=== PATIENT | female | born 1995 | race Caucasian/White ===

== ENCOUNTER 2018-10-10 19:14 | Emergency (ER) | payer OTHER, SELFPAY ==
[2018-10-10 19:15] VITALS: BP 123/93; PULSE 75; RESP 19; TEMP 37.1; O2SAT 98; BMI 20.1
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
[2018-10-10 21:20] VITALS: BP 128/78; PULSE 81; RESP 16; O2SAT 100
== END 2018-10-10 21:21 | disposition home or self-care (01) ==
LOC: ED 20:16
PROVIDERS: Emergency Provider Emergency Medicine
DX: S29.012A Strain of muscle and tendon of back wall of thorax, initial encounter (principal); S39.012A Strain of muscle, fascia and tendon of lower back, initial encounter; V49.40XA Driver injured in collision with unspecified motor vehicles in traffic accident, initial encounter; Y93.9 Activity, unspecified; Y92.9 Unspecified place or not applicable; Y99.9 Unspecified external cause status
CPT/HCPCS: 72070; 72100; 99284

== ENCOUNTER 2019-02-12 09:04 | Emergency (ER) | payer OTHER, SELFPAY ==
[2019-02-12 09:05] VITALS: BP 128/92; PULSE 79; RESP 22; TEMP 35.7; O2SAT 100; BMI 21.9
--- NOTE | 2019-02-12 09:28 | ED.DCSUM_ITS ---
- ER Visit Summary Date of Service: 02/12/19 Chief Complaint: Facial tingling History of Present Illness: The patient is a 23 F who states the before arrival emergency department she was at work. Indicate tingling in her fingers and her face. [place] a tightness in her chest and throat getting tighter. She states that she has had this before and was related to anxiety. She states it has been a long time since she had one. She is being treated for PTSD through [facility]. She is on Zoloft and Neurontin. Patient states that a week ago she had some blood in her stool. Retaining water. She states that she has had some anxiety about health care. She does not have a family physician. Physical Examination: Afebrile vital signs are stable Gen: Well-nourished well-developed Head: Normocephalic atraumatic Eyes: Perrl EOMI ENT: TMs clear no rhinorrhea moist mucous membranes Neck: Supple no lymphadenopathy no JVD nontender CVS: Regular rate rhythm no murmurs normal S1-S2 Respiratory: No distress clear to auscultation bilaterally chest nontender patient is tachypneic Abdomen: Soft nontender nondistended normal bowel sounds no masses Back: Nontender Extremity: Nontender no edema Skin: Normal color no rash Neuro: alert orientated ?3 CN II-XII intact normal strength sensation reflexes gait cerebellar Psych: Patient is anxious. No suicidal or homicidal ideation. Emergency Department Course and Treatment: Patient was given a dose of Ativan. He is feeling significantly better. She does note that she is tired. She has an appointment tomorrow at [facility]. She will inform them of today's visit. Patient is fully insured but has no primary care physician. I will refer her to primary care for her primary care needs. Impression: 1. Panic attack This note was generated with [employer] dictation software. It may contain incorrect words, spelling, and punctuation that were not noted in review of the chart prior to signing ED Disposition - Plan for ED Patient: Disposition: Home or Assisted Living Instructions: ED Panic Attack Referrals: Socorro Almonte MD [STAFF PHYSICIAN] - (call to establish with a primary care physician)
[2019-02-12] MEDS: LORazepam 0.5 MG Tablet PO (10:01)
[2019-02-12 10:43] VITALS: BP 129/61; PULSE 78; RESP 15; O2SAT 100
== END 2019-02-12 10:44 | disposition home or self-care (01) ==
PROVIDERS: Emergency Provider Emergency Medicine
DX: F41.0 Panic disorder [episodic paroxysmal anxiety] (principal); F43.10 Post-traumatic stress disorder, unspecified; R20.2 Paresthesia of skin; R06.82 Tachypnea, not elsewhere classified; Z72.0 Tobacco use; Z79.899 Other long term (current) drug therapy
CPT/HCPCS: 99283

== ENCOUNTER 2019-07-24 14:22 | Emergency (ER) | payer OTHER, SELFPAY ==
[2019-07-24 14:23] VITALS: BP 140/106; PULSE 110; RESP 27; TEMP 37; O2SAT 98; BMI 20.1
--- NOTE | 2019-07-24 15:06 | ED.DCSUM_ITS ---
History of Present Illness Chief Complaint: Suicidal Informant: Patient Onset: Days Context: Sudden Onset Timing: Continuous Current Severity: Moderate Maximum Severity: Severe Associated Symptoms: Depressed, Change in Eating, Change in sleeping, Decreased Interest, Suicidal Thoughts. Negative for: Guilt, Hopelessness, Easily distracted, Grandiosity, Flight of Ideas, Increased activity, Pressured Speech, Angry, Hostile, Threatening, Confusion, Paranoia, Visual Hallucinations, Auditory Hallucinations Specific plan (suicidal thought): Crash her car Narrative: Should not is a 24-year-old female who presents with depression and suicidal thoughts. She has thoughts of crashing her car. She states she wishes she wo uld go to sleep and never wake up. She is on multiple antidepressants. She is seen at [facility] in [place]. 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 She has not used for approximately 1 to 2 years. She denies fever, chills night sweats. Denies headache, ocular, auditory or visual symptoms. She denies trouble with speech or swallowing. She denies cardiac respiratory symptoms. She denies GI symptoms. She denies gynecologic or urologic symptoms. She denies paresthesia, anesthesia or motor weakness. She denies problems with balance. Patient states she drove herself to the emergency department. Prior similar symptoms: Yes Recent Illness/Hospitalization: No - Past Medical History (1) History of depression Status: Acute (2) History of drug use Status: Acute Past Medical History - Allergies and Home Meds Allergies/Adverse Reactions: Allergies No Known Allergies Allergy (Verified 07/24/19 14:27) Primary Care Physician: Care Physician,No Primary [Primary Care Provider] - Prior records reviewed: Yes Surgical History: no surgical history Lives: With Family Smoking Status: Current every day smoker Alcohol: None Drugs: None, - - Drug addict Review of Systems General: Denies: Chills, Fever, Sweats Eyes: Denies: Visual changes - bilaterally, Blurred Vision - bilaterally, Diplopia ENT: Denies: Bilateral ear pain, Rhinorrhea, Sore throat Cardiovascular: Denies: Chest pain, Palpitations Respiratory: Denies: Dyspnea, Cough, Dyspnea on exertion Gastrointestinal: Denies: Abdominal pain, Nausea, Vomiting, Diarrhea, Melena, Hematochezia Genitourinary: Denies: Dysuria, Hematuria, Frequency Musculoskeletal: Denies: Back pain, Extremity Pain Skin: Denies: Rash, Wounds Neurological: Denies: Headache, Weakness, Numbness Psych: Reports: Depression, Anxiety, Suicidal thoughts, Suicidal ideations Physical Exam Vital Signs/Narrative: Vital Signs Temp Pulse Resp BP Pulse Ox 07/24/19 14:23 98.6 F 110 H 27 H 140/106 H 98 Inital Vital Signs reviewed: Yes Psych: Depressed, Labile, Flat Affect, Poverty of Speech, Suicidal thoughts, Limited Insight, Limited Judgement. Negative for: Normal Speech Pattern, Logical sequential goal directed thoughts, No suicidal or homicidal ideation, Normal Stable Appropriate Affect, Good Insight, Good Judgement, Irritable, Euphoric, Flight of Ideas, Incoherent thoughts, Homicidal thoughts, Hallucinations, Delusions, Paranoid Ideation Diagnostic/Tx/Re-eval Laboratory Results 07/24/19 07/24/19 07/24/19 15:20 15:20 15:20 WBC 6.4 RBC 4.36 Hgb 12.9 Hct 39.2 MCV 89.9 MCH 29.6 MCHC 32.9 RDW Std Deviation 43.8 RDW Coeff of Nirali 13.2 Plt Count 344 MPV 9.7 Immature Gran % (Auto) 0.300 Neut % (Auto) 68.8 Lymph % (Auto) 22.5 [place] % (Auto) 5.0 Eos % (Auto) 2.8 Baso % (Auto) 0.6 Absolute Neuts (auto) 4.4 Absolute Lymphs (auto) 1.43 Nucleated RBC % 0 Sodium 139 Potassium 3.8 Chloride 111 H Carbon Dioxide 23.0 Anion Gap 5 BUN 13 Creatinine 0.53 L Estim Creat Clear Calc 131.14 Est GFR (MDRD) Af Amer 187 Est GFR (MDRD) Non-Af 154 BUN/Creatinine Ratio 24.7 H Glucose 96 Calcium 9.0 Serum , Qual Urine Opiates Screen Urine Methadone Screen Ur Barbiturates Screen Ur Phencyclidine Scrn Ur Amphetamines Screen U Methamphetamin-MDMA U Benzodiazepines Scrn Urine Cocaine Screen U Cannabinoids Screen Ur Drug Screen Comment Ethyl Alcohol < 3.0 07/24/19 07/24/19 15:20 Unknown WBC RBC Hgb Hct MCV MCH MCHC RDW Std Deviation RDW Coeff of Nirali Plt Count MPV Immature Gran % (Auto) Neut % (Auto) Lymph % (Auto) [place] % (Auto) Eos % (Auto) Baso % (Auto) Absolute Neuts (auto) Absolute Lymphs (auto) Nucleated RBC % Sodium Potassium Chloride Carbon Dioxide Anion Gap BUN Creatinine Estim Creat Clear Calc Est GFR (MDRD) Af Amer Est GFR (MDRD) Non-Af BUN/Creatinine Ratio Glucose Calcium Serum , Qual NEGATIVE Urine Opiates Screen NEGATIVE Urine Methadone Screen NEGATIVE Ur Barbiturates Screen NEGATIVE Ur Phencyclidine Scrn NEGATIVE Ur Amphetamines Screen NEGATIVE U Methamphetamin-MDMA NEGATIVE U Benzodiazepines Scrn NEGATIVE Urine Cocaine Screen NEGATIVE U Cannabinoids Screen POSITIVE H Ur Drug Screen Comment Ethyl Alcohol Laboratory results are unremarkable. Tox screen is positive for cannabis. This would not explain patient's complaints. Screening labs were obtained to facilitate placement at psychiatric facility. No acute metabolic, infectious or medical issues that would prevent patient receiving care at a psychiatric facility. She was seen by Kaci, case management. Plan is intense outpatient therapy. She has an appointment to be seen tomorrow. She was contracted for safety. ED Disposition - Plan for ED Patient: Disposition: Home or Assisted Living Diagnosis: Depression, Suicidal thoughts Instructions: Depression Referrals: Care Physician,No Primary [Primary Care Provider] -
[2019-07-24 15:32] LABS: Absolute Lymphocyte Count 1.43 X10^3/uL (0.83-4.51); Absolute Neutrophil Count 4.4 X10^3/uL (2.0-7.7); Basophil# 0.04 X10^3/uL; Basophil% 0.6 % (0-1); Eosinophil# 0.18 X10^3/uL; Eosinophils% 2.8 % (0-5); Hematocrit 39.2 % (37-47); Hemoglobin 12.9 g/dL (12.0-15.0); Lymphocyte # 1.43 X10^3/ul (4.0); Lymphocyte % 22.5 % (19-41); Mean Corp Hgb Conc 32.9 g/dL (32-36); Mean Corpuscular Hgb 29.6 pg (27.0-32.0); Mean Corpuscular Volume 89.9 fL (81-99); Mean Platelet Vol. 9.7 fl (6.2-12.0); Monocyte# 0.32 X10^3/uL; NRBC Flagged by Analyzer 0 % (0-5); Neutrophil # 4.37 X10^3/uL (2.7-7.7); Neutrophil % 68.8 % (47-70); Platelet Count 344 K/mm3 (150-450); RBC Distribution Width CV 13.2 % (11.6-14.6); RBC Distribution Width SD 43.8 fl (35.1-43.9); Red Blood Count 4.36 M/mm3 (4.2-5.4); White Blood Count 6.4 K/mm3 (4.4-11.0)
[2019-07-24 15:49] LABS: Anion Gap 5 (5-15); BUN 13 mg/dL (7-18); BUN/Creat Ratio 24.7 RATIO (10-20); Chloride 111 mmol/L (98-107); Creatinine, Serum 0.53 mg/dL (0.55-1.02); EST Glomerular Filtration Rate 154 mL/min (>60); Est Glom Filt Rate - Afr Amer 187 mL/min (>60); Estimated Creatinine Clearance 131.14 ml/min; Glucose 96 mg/dL (74-106); Potassium 3.8 mmol/L (3.5-5.1); Sodium Level 139 mmol/L (136-145)
[2019-07-24 16:00] VITALS: RESP 16
[2019-07-24 16:09] LABS: Amphetamine Urine VISTA NEGATIVE (<1000 ng/mL); Barbiturate Urine VISTA NEGATIVE (< 200 ng/mL); Benzodiazepine Urine VISTA NEGATIVE (< 200 ng/mL); Cocaine Urine VISTA NEGATIVE (< 300 ng/mL); Ecstacy Urine VISTA NEGATIVE (< 500 ng/mL); Methadone Urine VISTA NEGATIVE (< 300 ng/mL); PCP Urine VISTA NEGATIVE (< 25 ng/mL); THC Urine VISTA POSITIVE (< 50 ng/mL); Vista UDS pH Range 7
[2019-07-24 16:11] LABS: Internal QC Validated? YES +Cl - CLEAR BKGD
[2019-07-24 16:12] LABS: Pregnancy, Serum, hCG Quali. NEGATIVE Negative
[2019-07-24 16:14] LABS: Alcohol, Blood (Medical)-Serum < 3.0 mg/dL
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
[2019-07-24 17:00] VITALS: RESP 16
--- NOTE | 2019-08-01 12:40 | CM.ED ---
SOCIAL WORK ATTEMPTED TO COMPLETE FOLLOW UP WITH PATIENT ON 07/27/19 AND THIS DAY. MESSAGES LEFT. PATIENT DID NOT ATTEND INTAKE APPOINTMENT AT THE [facility]. Kia ROD MSW, HUMIDIFIER MAINTENANCE WORKER.
== END 2019-07-24 18:21 | disposition home or self-care (01) ==
PROVIDERS: Emergency Provider Emergency Medicine
DX: R45.851 Suicidal ideations (principal); F32.9 Major depressive disorder, single episode, unspecified; F17.200 Nicotine dependence, unspecified, uncomplicated
CPT/HCPCS: 80048; 80307; 80320; 84703; 85025; 99283; G0480

== ENCOUNTER 2020-04-19 15:17 | Emergency (ER) | payer OTHER, SELFPAY ==
[2020-04-19 15:18] VITALS: BP 129/65; PULSE 85; RESP 18; TEMP 37; O2SAT 97; BMI 23.2
--- NOTE | 2020-04-19 15:56 | ED.DCSUM_ITS ---
History of Present Illness Chief Complaint: GI Bleed Informant: Patient Narrative: Patient is a 25-year-old previously female who presents to the emergency department for diarrhea and bright red blood per rectum. Over the past 3 days she has had 2-4 episodes of nonbloody diarrhea. Today she said she had a bowel movement which was all bright red blood. She denies rectal pain. She has had some intermittent lower abdominal pain. She currently denies having pain. She states that it is normally dull but sometimes gets sharp. No known aggravating factors. Whenever the pain is there whenever she curls up in a ball and this sometimes helps. She has never had any of these issues before in the past. No associated nausea/vomiting. She denies any urinary symptoms. She denies any chance of being . She does not know anybody with similar symptoms. No recent travel or antibiotic use. She has not had any fevers or chills. No chest pain, shortness of breath or lightheadedness. She denies any issues with anemia before in the past. She does smoke cigarettes and marijuana but denies any other illicit drug use. Denies alcohol use. Past Medical History - Allergies and Home Meds Allergies/Adverse Reactions: Allergies No Known Allergies Allergy (Verified 07/24/19 14:27) Primary Care Physician: Care Physician,No Primary [Primary Care Provider] - Prior records reviewed: Yes Past Medical History: - - PTSD Surgical History: no surgical history Smoking Status: Current every day smoker Alcohol: None Drugs: Marijuana Review of Systems All systems negative except as indicated General: Denies: Chills, Fever, Sweats Eyes: Denies: Visual changes - bilaterally, Diplopia ENT: Denies: Rhinorrhea, Sore throat Cardiovascular: Denies: Chest pain, Palpitations Respiratory: Denies: Dyspnea, Cough, Dyspnea on exertion Gastrointestinal: Reports: Abdominal pain - None currently but is intermittent, Diarrhea. Denies: Nausea, Vomiting, Melena Genitourinary: Denies: Dysuria, Hematuria, Frequency Musculoskeletal: Denies: Back pain, Extremity Pain Skin: Denies: Rash, Wounds Neurological: Denies: Headache, Weakness, Numbness Hematologic: Denies: Easy bruising, Easy bleeding Physical Exam Vital Signs/Narrative: Vital Signs Temp Pulse Resp BP Pulse Ox 04/19/20 15:18 98.6 F 85 18 129/65 H 97 Inital Vital Signs reviewed: Yes General: Well nourished, Well developed, No Acute Distress Head: Normocephalic, Atraumatic Eyes: Perrl, EOMI ENT: Moist mucous membranes, No rhinorrhea Neck: Supple, Nontender Cardiovascular: Regular rate, Regular rhythm, No murmurs Respiratory: No distress, CTA bilaterally, Chest nontender Abdomen: Soft, Nontender, Nondistended, Normal bowel sounds Rectal: - - Rectal exam performed by Dr. Lock at patient's request for female doctor. She did not appreciate any lesions, fissures or hemorrhoids. No bright red blood/melena was appreciable Back: Nontender, Normal Inspection Extremities: Nontender, No edema Skin: Normal color, No rash Neurological: Alert, Oriented x3, Cranial nerves II-XII grossly intact, Normal Strength, Normal Sensation Psychological: Normal affect, Normal Mood Diagnostic/Tx/Re-eval - Medical Decision Making Patient presents to the emergency department for an episode of bright red blood per rectum. She has been having diarrhea over the past 3 days. Upon arrival to the emerge department vital signs within normal limits. She is not tachycardic. Not hypotensive. No fever. She does not appear in any distress on physical exam. Basic lab work being obtained. Did not reveal any significant acute abnormality. Specifically no anemia. BUN within normal limits. No significant abdominal pain to warrant a CT scan at this time. Urinalysis no evidence of infection. test was negative. Patient will be discharged home in stable condition. She is to drink plenty of water to remain hydrated. Given diet for diarrhea. Given her a PCP to follow- up with from the no doc list. If she continues to have this rectal bleeding and develops any symptoms she is to return to the emergency department immediately. Otherwise she needs follow-up with the PCP. She understands and is agreeable this plan. Will discharge home in stable condition. ED Disposition - Plan for ED Patient: Disposition: Home or Assisted Living Diagnosis: Diarrhea, Rectal bleeding Instructions: ED Hematochezia Stable, ED Diet for Vomiting or Diarrhea Adult Referrals: Care Physician,No Primary [Primary Care Provider] - 2 Days João Pedroza MD [STAFF PHYSICIAN] - 2 Days
[2020-04-19 16:52] LABS: Absolute Lymphocyte Count 1.86 X10^3/uL (0.83-4.51); Absolute Neutrophil Count 3.7 X10^3/uL (2.0-7.7); Basophil# 0.03 X10^3/uL; Basophil% 0.5 % (0-1); Eosinophil# 0.18 X10^3/uL; Eosinophils% 2.9 % (0-5); Hematocrit 38.3 % (37-47); Hemoglobin 12.4 g/dL (12.0-15.0); Lymphocyte # 1.86 X10^3/ul (4.0); Lymphocyte % 29.7 % (19-41); Mean Corp Hgb Conc 32.4 g/dL (32-36); Mean Corpuscular Hgb 29.7 pg (27.0-32.0); Mean Corpuscular Volume 91.8 fL (81-99); Mean Platelet Vol. 9.9 fl (6.2-12.0); Monocyte# 0.46 X10^3/uL; Monocyte% 7.3 % (0-10); NRBC Flagged by Analyzer 0 % (0-5); Neutrophil # 3.73 X10^3/uL (2.7-7.7); Neutrophil % 59.4 % (47-70); Platelet Count 335 K/mm3 (150-450); RBC Distribution Width CV 13.3 % (11.6-14.6); RBC Distribution Width SD 44.4 fl (35.1-43.9); Red Blood Count 4.17 M/mm3 (4.2-5.4); White Blood Count 6.3 K/mm3 (4.4-11.0)
[2020-04-19 17:09] LABS: Internal QC Validated? YES +Cl - CLEAR BKGD; Pregnancy, Serum, hCG Quali. NEGATIVE Negative
[2020-04-19 17:16] LABS: ALB/GLOB Ratio 1.5 RATIO (0.9-2.4); AST(SGOT) 16 U/L (15-37); Alanine Aminotransfer ALT/SGPT 21 U/L (13-56); Albumin, Serum 4.4 g/dL (3.2-5.0); Alkaline Phosphatase 79 U/L (45-117); Anion Gap 2 (5-15); BUN 11 mg/dL (7-18); BUN/Creat Ratio 19.2 RATIO (10-20); Calcium,Total 8.8 mg/dL (8.5-10.1); Chloride 109 mmol/L (98-107); Creatinine, Serum 0.57 mg/dL (0.55-1.02); EST Glomerular Filtration Rate 139 mL/min (>60); Est Glom Filt Rate - Afr Amer 168 mL/min (>60); Glucose 94 mg/dL (74-106); Protein, Total 7.4 g/dL (6.4-8.2); Sodium Level 140 mmol/L (136-145)
[2020-04-19 17:30] LABS: Bacteria 0 SEEN /hpf (None Seen); Mucous, Urine 0 SEEN /hpf (<or=2+); Red Blood Cells-Urine 0 SEEN /hpf (0-5); White Blood Cells 0 SEEN /hpf (0-5)
[2020-04-19 17:31] LABS: Color, Urine Yellow (Yellow); Glucose, Dipstick Normal (Normal); Ketone-Dipstick Negative (Negative); Leukocyte Esterase-Dipstick Negative /ul (Negative); Nitrite-Dipstick Negative (Negative); Occult Blood-Urine Negative /ul (Negative); Protein-Dipstick Negative (Negative); Specific Gravity, Urine 1.015 (1.002-1.030); Urine Bilirubin Dipstick Negative (Negative); Urine Clarity Sl. Cloudy (Clear); Urine Urobilinogen Normal (Normal)
[2020-04-19 17:39] LABS: Squamous Epithelial Cells - UA 0-5 SEEN /hpf (5-10)
[2020-04-19 18:02] VITALS: BP 137/81; PULSE 78; RESP 16; O2SAT 100
== END 2020-04-19 18:03 | disposition home or self-care (01) ==
PROVIDERS: Emergency Provider Emergency Medicine
DX: K62.5 Hemorrhage of anus and rectum (principal); R19.7 Diarrhea, unspecified; F17.210 Nicotine dependence, cigarettes, uncomplicated
CPT/HCPCS: 80053; 81001; 82274; 84703; 85025; 99283; A4216

== ENCOUNTER 2024-03-18 18:15 | Emergency (ER) | payer OTHER, SELFPAY ==
[2024-03-18 18:15] VITALS: BP 156/86; PULSE 87; RESP 16; TEMP 36.4; O2SAT 99; BMI 20.6
--- NOTE | 2024-03-18 18:50 | EDS_ITS ---
HPI History of Present Illness HPI Narrative: Healthy 28-year-old female. Her 2 dogs got in a fight and she went to break it up and got bit on her right long finger palmar aspect by the DIP. This occurred about an hour ago. Unsure of her last tetanus thinks it was about 12 years ago. That will be updated. She is right-hand dominant. Chief Complaint: Bite Informant: patient and parent Occured/Mechanism Mechanism/Context: Yes injury Onset/Context/Timing Onset: Today and Hours Context: Sudden Onset Timing: Continuous Quality of Pain: Sharp Current Severity: Mild Maximum Severity: Mild Associated Symptoms Associated Symptoms: Negative for Parasthesia, Weakness or Loss of Funtion Narrative Tetanus Immunization: >10 years Prior similar symptoms: No Recent Illness/Hospitalization: No ROS ROS ED ROS Narrative Denies recent illness. Review of Systems ROS Unobtainable: Denies due to encephalopathy Constitutional Constitutional ED: Denies chills or fever(s) Eyes Eyes: Denies blurry vision ENT ENT ED: Denies ear pain or rhinorrhea Cardiovascular Cardiovascular: Denies chest pain or palpitations Respiratory/Chest Respiratory/Chest: Denies cough or dyspnea Gastrointestinal Gastrointestinal: Denies abdominal pain Genitourinary Genitourinary ED: Denies dysuria or hematuria Musculoskeletal Musculoskeletal: Denies arthralgias or back pain Integumentary Denies abscess or Abrasions Psychiatric Psychiatric: Denies anxiety or depression Endocrine Endocrinology: Denies polydipsia Hematologic/Lymphatic Hematologic/Lymphatic: Denies easy bleeding, easy bruising or lymphadenopathy Allergic/Immunologic Allergic/Immunologic ED: Denies mouth swelling, tongue swelling or urticaria PFSH PFSH Medical History no medical history no medical history Home Medications ?Medication ?Instructions ?Recorded ?Last Taken ?Type clindamycin HCl 150 mg capsule 300 mg (2 x 150 mg) PO 4X/DAY ##80 07/23/16 Unknown Rx Allergy/AdvReac Type Severity Reaction Status Date / Time No Known Allergies Allergy Verified 03/18/24 18:17 Social History Smoking Status: Current some day smoker tobacco type: cigarettes EXAM Physical Exam Narrative Exam Narrative: Well-appearing 28-year-old female. Vital signs stable afebrile. H EENT exam unremarkable. Atraumatic. Neck nontender. Lungs clear. Heart regular rhythm. Abdomen soft. Moving all 4 extremities. Neurovascular intact. Right hand palmar aspect at the DIP skin crease she has a V-shaped dog laceration. Mild active bleeding. No pulsatile bleeding. Normal touch sensation. Full flexion extension. No signs of a flexor tendon injury. No signs of infection. Otherwise exam unremarkable. Const Vital Signs: 03/18/24 18:15 Temperature 97.6 F L Temperature Source Temporal Pulse Rate 87 Respiratory Rate 16 Blood Pressure 156/86 H Blood Pressure Mean 109 Pulse Ox 99 Oxygen Delivery Method Room Air Positive well nourished and well developed; Negative for obese, cachectic, contr actures or unkempt General Appearance ED: well developed and NAD; Negative for unkempt, cachectic or contractures Nutritional Appearance: Negative for cachectic or obese HEENT Reports moist mucous membranes normocephalic and atraumatic; Negative for trauma or tenderness Eyes PERRL and EOMs intact bilaterally General Eye ED: Negative for other Neck full ROM and no lymphadenopathy General: Negative for tenderness Resp normal respiratory effort and clear to auscultation bilaterally Effort and Inspection: Negative for other Auscultation: Negative for rales Cardio regular rate, regular rhythm, S1 normal heart sound, S2 normal heart sound and no murmurs Jugular Venous Distention: Negative for other Rate: Negative for bradycardia or tachycardic Rhythm: Negative for abnormal rhythm GI non-tender, non-distended and no masses Inspection: Negative for abdominal distention Palpation: soft; Negative for tender, guarding or rebound tenderness present Back/Spine no CVA tenderness Extremity full ROM; Negative for normal to inspection Extremity Narrative: Dog bite laceration right long finger, palmar aspect, at the DIP skin crease. About 2 to 3 cm in length. Mild active bleeding. Full flexion extension. Normal touch sensation. General Extremety ED: Yes tenderness; Negative for deformity or edema General Extremity: Negative for deformity or edema Neuro oriented x3, CN's II-XII intact bilaterally and no sensory deficits noted Sensorium / Orientation: alert, oriented to person, oriented to place and oriented to time; Negative for orientation impaired, lethargic or stuporous Motor Exam: strength 5/5 throughout Psych mental status grossly normal and thought process normal Appearance: Negative for unkempt Attitude: No agitated Mood & Affect: Negative for anxious Skin skin turgor normal General Skin Exam: Negative for other Lesions: no lesions Rashes: no rashes Trauma: laceration; Negative for abrasion MDM MDM MDM Narrative Medical decision making narrative: Healthy 28-year-old with a right long finger laceration dog bite. Will need to be repaired. Digital block. Explored. Washed and cleaned thoroughly. Irrigated. Suture repair. Tetanus to be updated. Discharged home. Suture removal in 10 days. Watch for any signs of infection. Suture repaired using 3 simple erupted 5-0 Ethilon sutures. Involve the skin and subcu tissue. No involvement of bone, joint or tendon. Cleaned thoroughly, irrigated with saline, washed and explored. Good hemostasis and wound closure is obtained. Tetanus updated. Dressed in discharge. Instructed on wound care. History & Record Review Discussion w/independent historian: Patient Procedures Lacerations Right long finger laceration repair:: Length: 0.5 in Depth: Sub Q Shape: Linear Prep: Shure-Clens Laceration repair: Digital block, Irrigated, Lidocaine, Nerve block, Skin sutures and Wound explored Number of Sutures/Cheryl: 3 Suture Information: Ethilon, Simple and 5-0 Comment: Right long finger dog bite laceration on the distal ulnar side just past the DIP. Skin and subcu tissue. No tendon, joint or bone. No foreign body. Digital block. Once proper anesthetic obtained. Washed with Shur-Clens washed and irrigated with saline and explored. Irrigated. Closed using 3 simple erupted 5-0 Ethilon sutures. Proper hemostasis wound closure obtained. Patient tolerated procedure well. A turnicot ring was used. Discharge Plan Triage Chief Complaint: Bite ED Provider: [facility] Dx/Rx/DC Orders Clinical Impression: Dog bite, Finger laceration Instructions: ED Dog Bite, ED Laceration, All Closures Prescriptions: No Action clindamycin HCl 150 MG capsule 300 mg PO 4X/DAY Qty: 80 0RF Primary Care Provider: Care Physician,No Primary Referrals: Care Physician,No Primary [Primary Care Provider] - Activity Restrictions/Additional Instructions: Tylenol and/or Motrin for pain. Clean daily with soap and water or peroxide and water. Apply antibiotic ointment. If you see any signs of infection much more swelling, redness, pus, streaks or fever return. At this time we do not need to start you on antibiotics. Stitches out in 10 days. You can take them out, we can take them out or your primary care physician's office can take them out. Keep dry and clean. If it gets wet clean it and dried off thoroughly. Print Language: Nepali Disposition Disposition: Home, Self Care
[2024-03-18] MEDS: Diphth,Pertuss(Acell),Tet Vac 0.5 ML Vial IM (19:00)
[2024-03-18] MEDS: Lidocaine 1% (20 ml mdv) 20 ML Vial 10 ML INFILT (19:00)
[2024-03-18 20:20] VITALS: BP 133/84; PULSE 82; RESP 16; TEMP 36.2; O2SAT 99
== END 2024-03-18 20:21 | disposition home or self-care (01) ==
PROVIDERS: Emergency Provider Emergency Medicine; Visit Provider Emergency Medicine
DX: S61.252A Open bite of right middle finger without damage to nail, initial encounter (principal); F17.210 Nicotine dependence, cigarettes, uncomplicated; Z23 Encounter for immunization; W54.0XXA Bitten by dog, initial encounter
CPT/HCPCS: 12001; 90471; 90715; 99282